=== PATIENT | female | born 1980 | race African-American/Black ===

== ENCOUNTER 2018-03-19 13:00 | Emergency (ER) | payer OTHER ==
[2018-03-19] MEDS ORDERED: IPRATROPIUM/ALBUTEROL SULFATE 3 ML AMPUL.NEB NEB ONE (13:28)
--- NOTE | 2018-03-19 13:31 | ED Physician Documentation ---
Dyspnea - HISTORIAN Historian: patient, friend - [facility] Chief Complaint: Dyspnea Additional Information: onset 1-2 hrs ago exab sob cough after mild exertion and exposure to tree pollen in lawn. also slight edema lower extremities Onset: hours (2) Duration: continues in ED, worse Initiating Event: exercise, environmental allergy Severity: mild, moderate Exacerbated By: exertion, coughing - ROS CONST: no problems. denies: recent illness, weakness EYES/ENT: denies: problems with vision, sore throat GI/: none NEURO/PSYCH: denies: headache MS/SKIN/LYMPH: denies: none - PAST HX Lung Disease: asthma, other (poss lo gr kidney problems-under eval. pt is morbiditly obese) PE Risk Factors: none Surgeries/Procedures: none Allergies/Adverse Reactions: Allergies Allergy/AdvReac Type Severity Reaction Status Date / Time Sulfa (Sulfonamide Allergy Verified 09/10/16 01:05 Antibiotics) [Sulfa(Sulfonamide Antibiotics)] Home Medications: Ambulatory Orders Medication Instructions Recorded Albuterol Sulfate [Proair 1 puff INH D 06/13/16 Respiclick] Fluticasone Propionate 110 Mcg 1 puff INH D 09/10/16 [Flovent Hfa] - SOCIAL HX Smoking History: cigarettes, greater than 1 pack/day Alcohol Use: occasionally Drug Use: none - FAMILY HX Family History: no significant history - VITAL SIGNS Vital Signs: Vital Signs Temp Pulse Resp BP Pulse Ox 112/67 09/10/16 02:05 - REVIEWED ASSESSMENTS Nursing Assessment Reviewed: Yes Vitals Reviewed: Yes ED Results Lab/Radiology - Orders Orders: ED Orders Category Date Time Status CHEST 2VIEW [RAD] Stat Exams 03/19/18 Ordered Ipratropium/Albuterol Sulfate [Duoneb] Med 03/19/18 13:28 Once 3 ml NEB NOW ONE Dyspnea Physical Exam - EXAM General Appearance: mild distress EENT: eye inspection normal Neck: nml inspection Respiratory: speaks full sentences, respiratory distress (mild) Neuro/Psych: oriented x3, cognition abnml, other (OCCASIONAL STATEMENTS INDICATE CONFUJSION-ACCD TO FAMILY BUT THIS IS NOT UNUSUAL ACCD TO FAMILY. THEY THINK HE ABUSES HIS MEDS BUT WILL NOT GIVE -UP CONTROL OF LTHE MEDS- SUSPECT ABUSE) Discharge Clincal Impression: acute exab asthma-improved, enviornmental allergies, nicotine abuse Referrals: Norma Lopez MD [Primary Care Provider] - 2 Days Comments: calledd [facility]. THEY DECLINED STATING NEED DETENTION. OFFERED PT FAMILY OTHER OPTIONS - HE DECLINED DECIDES TO GO HOME REFUSED DETENTION Condition: Fair Disposition: 01 HOME, SELF-CARE Decision to Admit: NO Decision Time: 15:12
--- NOTE | 2018-03-19 14:04 | Diagnostic Imaging Report ---
ERROL YOUNG [facility] [address] [address] Report Submission Date: Mar 19, 2018 1:52:16 PM CDT Patient Study Name: MARINA SILVA Date: Mar 19, 2018 1:31:19 PM CDT Modality Type: DX Gender: F Description: CHEST : 80 Institution: [facility] Physician: ERROL YOUNG [employer] to anterior and lateral chest Clinical history: Cough Technique: Pa and lateral standing upright radiographs Findings: The lung umana are hyperinflated with flattening of the hemidiaphragms. There is no mass infiltrate or pleural effusions. Thoracic spondylosis is present. The right lateral costophrenic angle is excluded from the radiographs Impression: Hyperinflation No acute infiltrate Electronically signed on Mar 19, 2018 1:52:16 PM CDT by: Tremaine GARCIA
[2018-03-19 16:38] VITALS: BP 136/74
== END 2018-03-19 14:00 | disposition home or self-care (01) ==
LOC: ED 13:00
DX: J45.901 Unspecified asthma with (acute) exacerbation (principal); T78.40XA Allergy, unspecified, initial encounter; F17.200 Nicotine dependence, unspecified, uncomplicated
CPT/HCPCS: 71046; 94640; 99283

== ENCOUNTER 2018-03-21 10:54 | Outpatient (CLI) | payer OTHER ==
[2018-03-21 11:55] LABS: eGFR (Non-African) > 60
== END 2018-03-21 10:55 ==
LOC: LAB 10:54
PROVIDERS: ATTEND Physician Assistant
DX: I10 Essential (primary) hypertension (principal); R94.4 Abnormal results of kidney function studies
CPT/HCPCS: 36415; 80053

== ENCOUNTER 2018-04-11 22:26 | Emergency (ER) | payer OTHER ==
[2018-04-11] MEDS ORDERED: MAG HYDROX/ALUMINUM HYD/SIMETH 30 ML, Lidocaine 2%Visc 15ml 20 MG, PHENobarb/HYOSCY/ATR... PO ONE ×3 (22:35)
[2018-04-11] MEDS ORDERED: PANTOPRAZOLE SODIUM 40 MG TABLET PO ONE (22:35)
[2018-04-11] MEDS ORDERED: MAG HYDROX/ALUMINUM HYD/SIMETH 30 ML UDC PO ONE (22:40)
[2018-04-11] MEDS ORDERED: Lidocaine 2%Visc 15ml 20 MG/ML UDC ONE (22:40)
--- NOTE | 2018-04-11 22:40 | ED Physician Documentation ---
General Adult - HISTORIAN Historian: patient - HPI Stated Complaint: heartburn Chief Complaint: General Adult Additional Information: Heartburn, and right upper abdomen pressure for the last hour and a half. Knows she has gall stones and thinks that is cause of the heartburn. Took Zantac an hour ago w/o relief; takes it daily. Used to take Prilosec which was very effective, but her insurance stopped paying for it. Then took ranitidine and then Zantac - they don't work as well. She is willing to go back to Prilosec even if she has to buy it over the counter. - ROS CONST: no problems - PAST HX Past History: hypertension, other (gall stones per recent US) Allergies/Adverse Reactions: Allergies Allergy/AdvReac Type Severity Reaction Status Date / Time Sulfa (Sulfonamide Allergy Verified 09/10/16 01:05 Antibiotics) [Sulfa(Sulfonamide Antibiotics)] Home Medications: Ambulatory Orders Medication Instructions Recorded Albuterol Sulfate [Proair 1 puff INH D 06/13/16 Respiclick] Fluticasone Propionate 110 Mcg 1 puff INH D 09/10/16 [Flovent Hfa] - SOCIAL HX Smoking History: non-smoker - FAMILY HX Family History: No - VITAL SIGNS Vital Signs: Vital Signs Temp Pulse Resp BP Pulse Ox 136/74 03/19/18 16:35 - REVIEWED ASSESSMENTS Nursing Assessment Reviewed: Yes Vitals Reviewed: Yes ED Results Lab/Radiology - Orders Orders: ED Orders Category Date Time Status Gi Cocktail Med 04/11/18 22:35 Ordered Mag Hydrox/Aluminum Hyd/Simeth [Mylanta] 30 ml Lidocaine 2%Visc 15ml [Xylocaine] 20 mg PHENobarb/HYOSCY/ATROPINE/SCOP [] 10 ml PO NOW Pantoprazole Sodium [Protonix] Med 04/11/18 22:35 Once 40 mg PO NOW ONE General Adult Physical Exam - PHYSICAL EXAM GENERAL APPEARANCE: obese EENT: eye inspection normal, ENT inspection normal NECK: normal inspection, supple RESPIRATORY: breath sounds normal CVS: reg rate & rhythm, heart sounds normal, no murmur ABDOMEN: soft, normal bowel sounds, non-tender BACK: normal inspection SKIN: warm/dry, normal color EXTREMITIES: normal range of motion (gait and stance) NEURO: CN's nml as tested, motor nml, sensation nml, cognition normal Discharge Clincal Impression: Heartburn Referrals: Norma Lopez MD [Primary Care Provider] - 2 Days Condition: Good Disposition: 01 HOME, SELF-CARE Decision to Admit: NO Decision Time: 22:42
[2018-04-11 22:47] VITALS: BP 136/76
== END 2018-04-11 22:50 | disposition home or self-care (01) ==
LOC: ED 22:26
DX: R12 Heartburn (principal)
CPT/HCPCS: 99283; A9270-GY

== ENCOUNTER 2018-04-24 00:46 | Emergency (ER) | payer OTHER ==
[2018-04-24] MEDS ORDERED: 0.9 % SODIUM CHLORIDE 1,000 ML IV ONE ×2 (01:29→01:46)
[2018-04-24] MEDS ORDERED: 0.9 % SODIUM CHLORIDE 1,000 ML IV SCH (01:30)
--- NOTE | 2018-04-24 01:33 | ED Physician Documentation ---
Dizziness - HISTORIAN Historian: patient, friend - HPI Stated Complaint: dizzy with standing Chief Complaint: Dizziness Additional Information: ORTHOSTATIC DIZZINESS. out in sun approx 4hrs today-now orthostatic dizziness- suspect dehydration. Timing: gradual onset (noted somewhat this am on arising to verticle) Duration: intermittent episodes Severity: mild, moderate Associated Symptoms: none, vestibular. denies: ear pain, nausea, vomiting Decreased Ability to Stand/ Walk: walks w/o assistance. denies: weak, difficult , off balance, cannot walk Usually: walks w/o assistance Worsened By: changing position, movement of head, standing position - ROS CONST: no problems EYES/ENT: none GI/: none MS/SKIN/LYMPH: none NEURO/PSYCH: none CVS/RESP: none - PAST HX Past History: asthma, hypertension, other (gerd ) Cardiac Disease: none Surgeries/Procedures: Allergies/Adverse Reactions: Allergies Allergy/AdvReac Type Severity Reaction Status Date / Time Sulfa (Sulfonamide Allergy Intermediate Rash Verified 04/24/18 01:06 Antibiotics) [Sulfa(Sulfonamide Antibiotics)] Home Medications: Ambulatory Orders Medication Instructions Recorded Ranitidine HCl [Zantac] 125 mg PO D 04/24/18 - SOCIAL HX Smoking History: less than 1 pack/day Alcohol Use: occasionally (yesterday) Drug Use: cocaine (yesterday) - FAMILY HX Family History: none - VITAL SIGNS Vital Signs: Vital Signs Temp Pulse Resp BP Pulse Ox 99.3 F 86 20 124/64 100 04/24/18 00:47 04/24/18 01:00 04/24/18 00:47 04/24/18 01:00 04/24/18 00:47 - REVIEWED ASSESSMENTS Nursing Assessment Reviewed: Yes Vitals Reviewed: Yes ED Results Lab/Radiology - Orders Orders: ED Orders Category Date Time Status Orthostatics 1T Care 04/24/18 01:00 Active 0.9 % Sodium Chloride [Normal Saline] 1,000 ml Med 04/24/18 01:30 Stop Req IV Q10H Chem Sticks Med 04/24/18 07:30 Ordered 1 each MC CHEMQ NORMAL SALINE @ 1000 MLS/HR ( 1000ml BOLUS) Med 04/24/18 01:29 Ordered 0.9 % Sodium Chloride [Normal Saline] 1,000 ml IV Q1H Dizziness Physical Exam - Physical Exam General Appearance: mild distress EENT: eye inspection normal Neck: normal inspection, supple Respiratory: no respiratory distress, breath sounds nml CVS: reg rate & rhythm, heart sounds normal Abdomen: soft, non-tender Skin: warm/dry, normal color. No: cyanosis, diaphoresis, jaundice Neuro: nml orientation, nml speech, mood/affect nml Extremities: non-tender, normal range of motion Cranial: nml as tested, no evidence of acute CVA Sensorimotor: motor nml, sensation nml. No: weakness, hemiparesis, hemiplegia, pronator drift RUE, pronator drift LUE Discharge Clincal Impression: dehydration w/orthostatic dizziness Referrals: Norma Lopez MD [Primary Care Provider] - 2 Days Comments: resolved after iv fluids Condition: Good Disposition: 01 HOME, SELF-CARE Decision to Admit: NO Decision Time: 03:06
[2018-04-24 02:59] VITALS: BP 101/49
[2018-04-24 08:33] LABS: APPEARANCE,URINE CLEAR (CLEAR); COLOR,URINE YELLOW (YELLOW); OCCULT BLOOD,URINE NEGATIVE (NEGATIVE); PH URINE 5.5 (5.0 - 8.0); UROBILINOGEN URINE 0.2 Eu (0.2-1.0)
== END 2018-04-24 02:55 | disposition home or self-care (01) ==
LOC: ED 00:46
DX: E86.0 Dehydration (principal); I95.1 Orthostatic hypotension
CPT/HCPCS: 81002; J7030; 96360; 99284; S1016

== ENCOUNTER 2018-08-07 21:23 | Emergency (ER) | payer OTHER ==
--- NOTE | 2018-08-07 21:41 | ED Physician Documentation ---
General Adult - HISTORIAN Historian: patient - HPI Stated Complaint: soa Chief Complaint: Dyspnea Onset: days ago (3) Timing: still present Severity: mild Further Comments: yes (She states over the last 3 days she has had shortness of air. she is coughing up phglem for last few days. denies a fever. no fatigue. she has a history of asthma and she has been using her inhalers.) Last known Well Code/Unknown Code: Unknown - ROS CONST: no problems - PAST HX Past History: asthma Immunizations: UTD Allergies/Adverse Reactions: Allergies Allergy/AdvReac Type Severity Reaction Status Date / Time Sulfa (Sulfonamide Allergy Intermediate Rash Verified 08/07/18 21:55 Antibiotics) [Sulfa(Sulfonamide Antibiotics)] Home Medications: Ambulatory Orders Medication Instructions Recorded Ranitidine HCl [Zantac] 125 mg PO D 04/24/18 - SOCIAL HX Smoking History: cigarettes Alcohol Use: none Drug Use: none - FAMILY HX Family History: No - VITAL SIGNS Vital Signs: Vital Signs Temp Pulse Resp BP Pulse Ox 101/49 04/24/18 02:55 - REVIEWED ASSESSMENTS Nursing Assessment Reviewed: Yes Vitals Reviewed: Yes ED Results Lab/Radiology - Radiology Radiology Impressions: Chest, 2 view History: SHORT OF AIR, ASTHMA, COUGH Findings: Comparison is made to exam dated 03/19/2018. The heart size is normal. The lungs are clear. There is no pleural effusion or pneumothorax identified. The osseous structures are normal. Impression: 1. No acute pulmonary disease. Electronically signed on Aug 07, 2018 10:14:42 PM CDT by: Eulalio Waldron General Adult Physical Exam - PHYSICAL EXAM GENERAL APPEARANCE: no distress EENT: eye inspection normal, ENT inspection normal, pharynx normal, no signs of dehydration, CARTER NECK: normal inspection RESPIRATORY: no resp distress, chest non-tender, breath sounds normal CVS: reg rate & rhythm, heart sounds normal, equal pulses, no murmur ABDOMEN: soft, normal bowel sounds, no distension RECTAL: normal exam BACK: normal inspection SKIN: warm/dry, normal color EXTREMITIES: non-tender, normal range of motion, no evidence of injury, no edema NEURO: oriented X3 Discharge Clincal Impression: Shortness of breath Referrals: Norma Lopez MD [Primary Care Provider] - 2 Days Comments: 1. Continue meds 2. See PCP for any continued symptoms or concerns 3. Return to ER for any concerns Condition: Stable Disposition: 01 HOME, SELF-CARE Decision to Admit: NO Date of Decison to Admit: 08/07/18 Decision Time: 22:17
[2018-08-07 21:54] VITALS: BP 151/83
--- NOTE | 2018-08-08 06:50 | Diagnostic Imaging Report ---
SANJUANITA HOBBS [facility] [address] [facility] [address] [place], [place]. [address] Report Submission Date: Aug 07, 2018 10:14:42 PM CDT Patient Study Name: MARINA SILVA Date: Aug 07, 2018 9:55:48 PM CDT Modality Type: DX Gender: F Description: CHEST : 80 Institution: [facility] Physician: SANJUANITA HOBBS Chest, 2 view History: SHORT OF AIR, ASTHMA, COUGH Findings: Comparison is made to exam dated 03/19/2018. The heart size is normal. The lungs are clear. There is no pleural effusion or pneumothorax identified. The osseous structures are normal. Impression: 1. No acute pulmonary disease. Electronically signed on Aug 07, 2018 10:14:42 PM CDT by: Eulalio GARCIA
== END 2018-08-07 22:20 | disposition home or self-care (01) ==
LOC: ED 21:23
DX: R06.02 Shortness of breath (principal)
CPT/HCPCS: 71046; 99282

== ENCOUNTER 2019-02-15 21:44 | Emergency (ER) | payer OTHER ==
[2019-02-15 21:58] VITALS: BP 135/77
[2019-02-15] MEDS ORDERED: KETOROLAC TROMETHAMINE 60 MG/2 ML VIAL IM ONE (22:02)
[2019-02-15] MEDS ORDERED: ORPHENADRINE CITRATE 60 MG/2 ML ML IM ONE (22:02)
--- NOTE | 2019-02-15 22:05 | ED Physician Documentation ---
General Adult - HISTORIAN Historian: patient - HPI Stated Complaint: L shoulder pain Chief Complaint: General Adult Onset: other (last night) Further Comments: yes (38 year old female patient presents with complaints of shoulder and neck pain which started last night. Patient complains of leg cramping this morning.) - ROS CONST: no problems EYES/ENT: none CVS/RESP: none GI/: none MS/SKIN/LYMPH: none NEURO/PSYCH: denies: headache, fainting, dizziness, tingling, numbness, difficulty walking, difficulty with speech, anxiety, depression, other - PAST HX Past History: hypertension, other (asthma) Surgeries/Procedures: BTL, , cholecystectomy Allergies/Adverse Reactions: Allergies Allergy/AdvReac Type Severity Reaction Status Date / Time Sulfa (Sulfonamide Allergy Intermediate Rash Verified 02/15/19 21:59 Antibiotics) [Sulfa(Sulfonamide Antibiotics)] Home Medications: Ambulatory Orders Medication Instructions Recorded Fluticasone/Salmeterol [Advair 1 puff INH BID 02/15/19 100-50 Diskus] - SOCIAL HX Smoking History: cigarettes Alcohol Use: occasionally Drug Use: marijuana - FAMILY HX Family History: No - VITAL SIGNS Vital Signs: Vital Signs Temp Pulse Resp BP Pulse Ox 99.4 F 76 17 135/77 99 02/15/19 21:44 02/15/19 21:44 02/15/19 21:44 02/15/19 21:44 02/15/19 21:44 - REVIEWED ASSESSMENTS Nursing Assessment Reviewed: Yes Vitals Reviewed: Yes Progress - Progress Progress: Medicated in ER with toradol and norflex. Discharge instructions reviewed - patient verbalized understanding ED Results Lab/Radiology - Orders Orders: ED Orders Category Date Time Status Ketorolac Tromethamine [Toradol] Med 02/15/19 22:02 Once 60 mg IM NOW ONE Orphenadrine Citrate [Norflex] Med 02/15/19 22:02 Once 60 mg IM NOW ONE General Adult Physical Exam - PHYSICAL EXAM GENERAL APPEARANCE: mild distress EENT: eye inspection normal, CARTER RESPIRATORY: no resp distress, breath sounds normal, other (chest wall tenderness to palpation along left sternal border.) CVS: reg rate & rhythm, heart sounds normal, equal pulses, no murmur, no gallop, PMI nml, no JVD, no friction rub, 24 ABDOMEN: soft, no organomegaly, normal bowel sounds, no abdominal bruit, no distension BACK: other (left trapezius with spasm; left sternocleidomastoid tender to palpation. 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 Limit your dose to less than 4 G per day. Do not take ibuprofen, aleve, naproxen or any other NSAID while you are on toradol. (ketoralac) You may want to try massage, over the counter lidocaine patches, biofreeze, jhon suarez or aspercream . Condition: Stable Disposition: 01 HOME, SELF-CARE Decision to Admit: NO Decision Time: 22:11
== END 2019-02-15 22:30 | disposition home or self-care (01) ==
LOC: ED 21:44
DX: M62.838 Other muscle spasm (principal)
CPT/HCPCS: 93005; 96372; 99282; 99283; J1885; J2360